=== PATIENT | female | born 1955 | race Caucasian/White ===

== ENCOUNTER 2016-06-12 14:33 | Outpatient (RCR) | payer BC ==
[~2016-06-12 14:33] MED LIST: BUPR300T PO; CHOL2000 PO; DIAZ10TA3 PO; EXEM25TA4 PO; FNT50TD TD; HYDR118S10 PO; LVT.112T PO; POLY17PO23 PO; TMSL.4C PO; TRIA1TAB2 PO; VNL75T PO
--- OUTSIDE RECORDS SUMMARY | 2016-06-12 14:36 | XMS REPORT | Continuity of Care Document ---
Author Author Interface Organization Interface Address Unknown Phone Unavailable Problems Problem Status Onset Date Classification Date Reported Comments Source Medications Medication Details Route Status Patient Instructions Ordering Provider Order Date Source Allergies, Adverse Reactions, Alerts Substance Category Reaction Severity Reaction type Status Date Reported Comments Source Immunizations Immunization Date Given Site Status Last Updated Comments Source Results Order Name Results Value Reference Range Date Interpretation Comments Source Vital Signs Vital Sign Value Date Comments Source Encounters Location Location Details Encounter Type Encounter Number Reason For Visit Attending Provider ADM Date DC Date Status Source [facility] [id number] Amb Surgery [id number] Paul Liao 10/21/2012 10/21/2012 [employer] Procedures Procedure Code Date Perfomer Comments Source
[2016-06-12 14:54] LABS: BASOPHILS % (AUTO) 0 % (0-10); EOSINOPHILS # (AUTO) 0.1 10^3/uL (0.0-0.3); EOSINOPHILS % (AUTO) 1 % (0-10); LYMPHOCYTES # (AUTO) 2.8 X 10^3 (1.0-4.0); LYMPHOCYTES % (AUTO) 30 % (12-44); MEAN CORPUSCULAR HEMOGLOBIN 31 PG (25-34); MEAN CORPUSCULAR HGB CONC 34 G/DL (32-36); MEAN CORPUSCULAR VOLUME 91 FL (80-99); MONOCYTES # (AUTO) 0.9 X 10^3 (0.0-1.0); MONOCYTES % (AUTO) 10 % (0-12); NEUTROPHILS # (AUTO) 5.5 X 10^3 (1.8-7.8); NEUTROPHILS % (AUTO) 59 % (42-75); PLATELET COUNT 387 10^3/uL (130-400); RED BLOOD COUNT 4.99 10^6/uL (4.35-5.85); RED CELL DISTRIBUTION WIDTH 13.4 % (10.0-14.5); WHITE BLOOD COUNT 9.3 10^3/uL (4.3-11.0)
[2016-06-12 15:21] LABS: ALANINE AMINOTRANSFERASE 31 U/L (0-55); ALBUMIN 4.3 G/DL (3.2-4.5); ANION GAP 12 MMOL/L (5-14); ASPARTATE AMINO TRANSFERASE 23 U/L (5-34); BILIRUBIN,TOTAL 0.9 MG/DL (0.1-1.0); BLOOD UREA NITROGEN 21 MG/DL (7-18); BUN/CREATININE RATIO 25; CALCIUM 9.9 MG/DL (8.5-10.1); CARBON DIOXIDE 27 MMOL/L (21-32); CHLORIDE 102 MMOL/L (98-107); CREATININE SERUM 0.85 MG/DL (0.60-1.30); GFR ESTIMATED > 60; GLUCOSE 108 MG/DL (70-105); POTASSIUM 3.7 MMOL/L (3.6-5.0); SODIUM 141 MMOL/L (135-145); TOTAL PROTEIN 7.2 G/DL (6.4-8.2)
[2016-06-12 15:28] LABS: PEP REPORT SEE PATH REPORT
[2016-06-12 15:41] LABS: THYROID STIMULATING HORMONE 0.13 UIU/ML (0.35-4.94)
[2016-06-13 04:45] LABS: IMMUNOGLOBULIN IGA 393 mg/dL (71-263); IMMUNOGLOBULIN IGG 739 mg/dL (672-1680); LIGHT CHAIN KAPPA SERUM QUANT 44.43 mg/L (3.30-19.40); LIGHT CHAIN LAMBDA SERUM QUANT 9.33 mg/L (5.71-26.30)
[2016-06-13 07:14] LABS: IMMUNOGLOBULIN IGM 34 mg/dL (47-209)
[2016-06-16 11:39] LABS: CLIN PATHOLOGY REPORT FOOTNOTE; SERUM PROTEIN ELEC DETAIL L-17-0000894
== END 2016-09-10 | disposition home or self-care (01) ==
LOC: ONC 14:33
PROVIDERS: ATTEND Internal Medicine Hematology & Oncology
DX: Z08 Encounter for follow-up examination after completed treatment for malignant neoplasm (principal); Z85.3 Personal history of malignant neoplasm of breast; D47.2 Monoclonal gammopathy; E55.9 Vitamin D deficiency, unspecified; G47.33 Obstructive sleep apnea (adult) (pediatric); Z90.13 Acquired absence of bilateral breasts and nipples; Z79.899 Other long term (current) drug therapy
CPT/HCPCS: 36415; 80053; 82232; 82784; 83883; 84155; 84165; 84443; 85025; 99213

== ENCOUNTER → 2016-12-11 | Outpatient (CLI) | payer BC ==
[~2016-12-11] MED LIST changes: +CHOL200025 PO; +HYDR-3820 PO; +LEVO100T7 PO; +PREG75CA PO; +TRIA1CAP4 PO; +VNL37.5T PO
--- NOTE | 2016-12-11 17:15 | Diagnostic Imaging Report ---
INDICATION: Progressive right great toe pain. FINDINGS: AP, oblique, and lateral views of the right foot are obtained. No acute fracture or malalignment is identified. There is narrowing of the first metatarsophalangeal joint with marginal spurring and subchondral sclerosis. No radiopaque foreign body is identified. IMPRESSION: Mydw-vx-sujhizkz degenerative changes in the great toe without acute abnormality seen. Dictated by: Dictated on workstation # [id number]
--- NOTE | 2016-12-11 17:22 | Diagnostic Imaging Report ---
INDICATION: Right great toe pain. FINDINGS: AP and lateral views of the great toe reveal moderate narrowing of the first metatarsophalangeal joint with prominent marginal osteophytes. There are also cehd-qh-hyfjxijx osteophytes at the first interphalangeal joint. No fracture or dislocation is seen, and there is no abnormal lytic or sclerotic focus. IMPRESSION: Osteoarthritis involving the great toe which is most pronounced at the first metatarsophalangeal joint. Dictated by: Dictated on workstation # [id number]
== END ==
LOC: RAD 15:52
PROVIDERS: ATTEND Nurse Practitioner Family
DX: M19.071 Primary osteoarthritis, right ankle and foot (principal)
CPT/HCPCS: 73630; 73660

== ENCOUNTER 2017-04-09 11:56 | Outpatient (CLI) | payer BC ==
[~2017-04-09] VITALS: Ht 154.9 cm; Wt 87.5 kg
[~2017-04-09 11:56] MED LIST changes: -CHOL200025 PO; -HYDR-3820 PO; -LEVO100T7 PO; -PREG75CA PO; -TRIA1CAP4 PO; -VNL37.5T PO
[2017-04-09] MEDS ORDERED: DIAZ10TA3 PO (12:12)
[2017-04-09] MEDS ORDERED: VNL37.5T PO (12:12)
[2017-04-09] MEDS ORDERED: PREG75CA PO (12:12)
[2017-04-09] MEDS ORDERED: TRIA1CAP4 PO (12:12)
[2017-04-09] MEDS ORDERED: HYDR-3820 PO (12:12)
[2017-04-09] MEDS ORDERED: LEVO100T7 PO (12:12)
[2017-04-09] MEDS ORDERED: CHOL200025 PO (12:12)
== END 2017-04-09 12:17 | disposition home or self-care (01) ==
LOC: PREOP 11:56
PROVIDERS: ATTEND Podiatrist Foot & Ankle Surgery
DX: Z01.818 Encounter for other preprocedural examination (principal); M20.21 Hallux rigidus, right foot
CPT/HCPCS: 87081

== ENCOUNTER 2017-05-04 06:00 | Day surgery (SDC) | payer BC ==
[~2017-05-04] VITALS: Ht 154.9 cm; Wt 87.5 kg
[~2017-05-04 06:00] MED LIST changes: +CHOL200025 PO; +HYDR-3820 PO; +LEVO100T7 PO; +PREG75CA PO; +TRIA1CAP4 PO; +VNL37.5T PO
[2017-05-04 06:15] VITALS: BP 147/97
[2017-05-04] MEDS: LACTATED RINGERS 1,000 ML IV PRN ×2 (06:45→08:15)
[2017-05-04] MEDS ORDERED: ceFAZolin 1 GM/NS 50 ML IVPB IV ONE ×2 (06:45)
[2017-05-04] MEDS ORDERED: CATHETER FLUSH 10 ML SYR IV PRN (06:45)
[2017-05-04] MEDS ORDERED: BUPIVACAINE 0.5% 30 ML (SENSORCAINE) VIAL ONE (06:57)
[2017-05-04] MEDS ORDERED: fentaNYL INJECTION 100 MCG/2 ML AMP ONE (07:06)
[2017-05-04] MEDS ORDERED: LACTATED RINGERS 0 ML IV ONE (07:06)
[2017-05-04] MEDS ORDERED: proPOfol 200 MG/20 ML (DIPRIVAN) VIAL IV ONE (07:06)
[2017-05-04] MEDS ORDERED: LIDOCAINE PF 2% 5 ML (XYLOCAINE) VIAL ONE (07:06)
[2017-05-04] MEDS ORDERED: LIDOCAINE JELLY 2% (XYLOCAINE) 5 ML TUBE ONE (07:06)
[2017-05-04] MEDS ORDERED: ROCURONIUM 50 MG/5 ML (ZEMURON) VIAL IV ONE (07:06)
[2017-05-04] MEDS ORDERED: ONDANSETRON 4 MG/2 ML (SDV) Z0FRAN ONE (07:06)
[2017-05-04] MEDS ORDERED: MIDAZOLAM 2 MG/2 ML (VERSED) VIAL ONE (07:07)
--- NOTE | 2017-05-04 07:37 | Progress Note-Pre Operative ---
Pre-Operative Progress Note H&P Reviewed The H&P was reviewed, patient examined and no changes noted. Date Seen by Provider: May 04, 2017 Time Seen by Provider: 07:37 Date H&P Reviewed: May 04, 2017 Time H&P Reviewed: 07:37 Pre-Operative Diagnosis: Hallux Rigidus Right JONY ROBERTS DPM May 04, 2017 7:37 am
[2017-05-04] MEDS ORDERED: SEVOFLURANE (ULTANE) 15 ML INHAL SOLN ONE (08:45)
[2017-05-04] MEDS ORDERED: DEXAMETHASONE 10 MG/ML (DECADRON) 1 ML VIAL ONE (08:48)
[2017-05-04] MEDS ORDERED: DEXAMETHASONE 10 MG/ML (DECADRON) 1 ML VIAL IM ONE (09:00)
--- NOTE | 2017-05-04 09:10 | Progress Note-Post Operative ---
Post-Operative Progess Note Surgeon (s)/Physician Practice Consultant (s) Surgeon JONY ROBERTS DPM Physician Practice Consultant: NONE Pre-Operative Diagnosis Hallux Rigidus Right Post-Operative Diagnosis Same plus hallux valgus right Procedure & Operative Findings Date of Procedure 05/04/17 Procedure Performed/Findings Wu Bunionectomy, right Anesthesia Type General Estimated Blood Loss Estimated blood loss (mL): Minimal Specimens/Packing Specimens Removed None JONY ROBERTS DPM May 04, 2017 9:10 am
[2017-05-04] MEDS ORDERED: LACTATED RINGERS 1,000 ML IV SCH (09:11)
[2017-05-04] MEDS ORDERED: MEPERIDINE (DEMEROL) INJ 50 MG/ML IVP PRN (09:15)
[2017-05-04] MEDS ORDERED: HYDROcodone/APAP 5 MG/325 MG (LORTAB) TAB PO PRN (09:15)
[2017-05-04] MEDS ORDERED: ONDANSETRON 4 MG/2 ML (SDV) Z0FRAN IVP PRN ×2 (09:15)
[2017-05-04] MEDS ORDERED: HYDR-3812 PO (09:15)
[2017-05-04] MEDS ORDERED: CEPH500C PO (09:15)
[2017-05-04] MEDS: morphine INJ 10 MG/ML 1ML (SYR OR VIAL) IVP PRN ×2 (09:34→09:44)
[2017-05-04 10:10] VITALS: BP 152/90
--- NOTE | 2017-05-04 10:12 | Diagnostic Imaging Report ---
2 views of the right foot. COMPARISON: 12/11/2016. INDICATION: Removal of right bunion. FINDINGS: Postsurgical changes are seen with osteotomy and internal fixation in the proximal phalanx of the great toe. Alignment is satisfactory. No subluxation or dislocation. IMPRESSION: Osteotomy and internal fixation along the proximal phalanx of the great toe is seen. Dictated by: Dictated on workstation # [id number]
[2017-05-04 10:40] VITALS: BP 152/90
[2017-05-04 11:10] VITALS: BP 153/97
--- NOTE | 2017-05-04 11:23 | Physical Therapy Ortho Eval ---
PT Orthopedic Evaluation Type of Surgery bunion right foot Prior Level of Function Current Living Status: Spouse Locomotion (Upon Admit): Independent Established Durable Medical Eq: None Subjective Subjective Patient is agreeable to participate with PT. Entry Into Home: Stairs Without Railing Steps Into Home: 2 Objective Objective Education with demonstration on PWB right foot with FWW Motor Control Motor Control: Motor Control WNL ROM ROM: WFL, except focal deficit Strength Strength: WFL Transfer Transfers (B, C, W/C) (FIM): 7 Gait Gait Assistive Device: FWW Right Lower Extremity: Right Weight Bearing Status RLE: Partial Weight Bearing Left Lower Extremity: Left Weight Bearing Status LLE: Full Weight Bearing Other Weight Bearing Inst.: Heel contact only right foot with surgical shoe in place for protection Gait (FIM): 2 Distance (FIM): 3=401-62 ft Distance: 65' Gait Level of Assist: 6 Treatment Rendered Treatment: Gait Train, Step Train (with spouse assist on left) Assessment/Goals Goal Time Frame: 1 Visit Safe Ambulation: Yes Plan Treatment Plan: Discharge Treatment Duration: 1 Visits Per Week: 1 PT/Family Agrees to Plan: Yes Time Time In: 1053 Time Out: 1111 Total Billed Treatment Time: 18 Billed Treatment Time 1 visit EVModC 18 min No BUDDY MOSHER PT May 04, 2017 11:23
--- NOTE | 2017-05-04 12:12 | OPERATIVE REPORT ---
DATE OF SERVICE: 05/04/2017 SURGEON: Katiana Roberts DPM PREOPERATIVE DIAGNOSIS: Hallux rigidus, right. POSTOPERATIVE DIAGNOSIS: Hallux rigidus, right with the addition of hallux abductovalgus, right. PROCEDURE: Modified Wu bunionectomy with cheilectomy, right. WOUND CLASS: Clean. ANESTHESIA: General. HEMOSTASIS: Pneumatic thigh tourniquet at 300 mmHg. INDICATIONS: This 61-year-old female presents complaining of painful right great toe joint. Conservative therapy has met with unsatisfactory results and the patient is agreeable to surgical intervention after risks and complications were discussed at length. No guarantees were extended to the patient and she is willing to proceed. The patient was brought back to the operating table placed in a secure supine position. A proper timeout was performed. General anesthetic was induced. A pneumatic thigh tourniquet was placed on the right lower extremity over several layers of padding. The right foot was then prepped and draped in normal sterile manner. The right foot was then elevated and allowed to exsanguinate after which the tourniquet was inflated to 300 mmHg. Attention was then directed to the dorsal aspect of the first metatarsophalangeal joint where a 6 cm longitudinal linear incision was created. The incision was deepened in the same plane with great care to identify and retract all vital neurovascular structures. All necessary blood vessels were cauterized as encountered. The incision was deepened down to capsule where a longitudinal capsulotomy was performed. This exposed a hypertrophic dorsal eminence to the first metatarsal head as well as the base of the proximal phalanx. Power sagittal saw was utilized to remove the dorsal eminence to the first metatarsal head and a rongeur was utilized to reduce the dorsal, medial and lateral prominence to the base of the proximal phalanx. These areas were further contoured and smoothed with a power bur as well as a power rasp. With inspection to the first metatarsal head, there is approximately 1/4 to 1/3 of the articular cartilage that had full thickness degeneration to the dorsal lateral aspect of the head of the first metatarsal. It was then decided that a fenestration and a joint alignment would be more appropriate than joint replacement. Utilizing a 1 mm drill, the area devoid of articular cartilage was fenestrated and cleansed. There is significant amount of lateral deviation to the hallux promoting more pressure to the lateral side of the joint. It was then decided that an Wu type procedure would be appropriate to realign the hallux and reduce pressure to the lateral aspect of the joint. Attention was then directed to the diaphysis of the proximal phalanx where subperiosteal dissection was carried out. A wedge of bone was resected utilizing a power sagittal saw with the base medial and the lateral cortices held intact. Once the wedge of bone was removed, the gap was closed reducing the angulation of the right hallux. Two commercial helicopter pilot holes were created at the dorsal medial aspect of the osteotomy. A 28-gauge monofilament wire was then passed through the commercial helicopter pilot hole securing the osteotomy in a closed position. This was done after copious amounts of normal saline was used for flushing the wound. Once the monofilament wire was secured, excellent bony apposition and fixation was appreciated at this time. The wound was flushed with copious amounts of normal saline once again and closure was performed in layers. Deep closure was performed with 3-0 Vicryl, superficial 4-0 Vicryl, skin was closed with 4-0 Prolene in a horizontal mattress type stitch. Postoperative injection consisted of 15 mL of 0.5% Marcaine injected in a Arauz block. A 10 mg dexamethasone was also utilized to infuse into the first metatarsophalangeal joint. Postoperative dressing consisted of Betadine soaked Adaptic, sterile 4 x 4, sterile Kerlix all secured with Coban wrap. The patient tolerated the anesthesia and procedure well and was transported from the operating room to the recovery area with vital signs stable and vascular status intact to all digits of the right foot. She was given a prescription for Vicodin and Keflex postoperatively. She is to follow up in my office in 10 days' Period of time or sooner if necessary. Job ID: [id number] DocumentID: [id number] Dictated Date: 05/04/2017 09:22:10 Title Searcher Date: 05/04/2017 12:12:28 Dictated By: KATIANA ROBERTS DPM
== END 2017-05-04 11:30 | disposition home or self-care (01) ==
LOC: SDC 06:00
PROVIDERS: ATTEND Podiatrist Foot & Ankle Surgery
DX: M20.21 Hallux rigidus, right foot (principal); M20.11 Hallux valgus (acquired), right foot; E11.9 Type 2 diabetes mellitus without complications; E03.9 Hypothyroidism, unspecified; Z85.3 Personal history of malignant neoplasm of breast; I10 Essential (primary) hypertension; G47.33 Obstructive sleep apnea (adult) (pediatric); G62.9 Polyneuropathy, unspecified; F32.9 Major depressive disorder, single episode, unspecified; Z87.442 Personal history of urinary calculi; Z92.3 Personal history of irradiation; Z92.21 Personal history of antineoplastic chemotherapy; Z79.899 Other long term (current) drug therapy; Z88.8 Allergy status to other drugs, medicaments and biological substances
CPT/HCPCS: 73620

== ENCOUNTER 2017-06-11 14:35 | Outpatient (RCR) | payer BC ==
[~2017-06-11 14:35] MED LIST changes: +ACHD5005 PO; +CEPH500C PO
[2017-06-11 15:05] LABS: BASOPHILS # (AUTO) 0.1 10^3/uL (0.0-0.1); BASOPHILS % (AUTO) 1 % (0-10); EOSINOPHILS # (AUTO) 0.1 10^3/uL (0.0-0.3); EOSINOPHILS % (AUTO) 1 % (0-10); HEMATOCRIT 44 % (35-52); LYMPHOCYTES # (AUTO) 2.9 X 10^3 (1.0-4.0); LYMPHOCYTES % (AUTO) 35 % (12-44); MEAN CORPUSCULAR HEMOGLOBIN 30 PG (25-34); MEAN CORPUSCULAR HGB CONC 34 G/DL (32-36); MEAN CORPUSCULAR VOLUME 89 FL (80-99); MEAN PLATELET VOLUME 10.1 FL (7.4-10.4); MONOCYTES # (AUTO) 0.7 X 10^3 (0.0-1.0); MONOCYTES % (AUTO) 8 % (0-12); NEUTROPHILS # (AUTO) 4.6 X 10^3 (1.8-7.8); NEUTROPHILS % (AUTO) 55 % (42-75); PLATELET COUNT 336 10^3/uL (130-400); RED BLOOD COUNT 4.94 10^6/uL (4.35-5.85); RED CELL DISTRIBUTION WIDTH 13.6 % (10.0-14.5); WHITE BLOOD COUNT 8.3 10^3/uL (4.3-11.0)
[2017-06-11 15:24] LABS: ALANINE AMINOTRANSFERASE 25 U/L (0-55); ALBUMIN 3.9 GM/DL (3.2-4.5); ALKALINE PHOSPHATASE 74 U/L (40-136); BILIRUBIN,TOTAL 0.8 MG/DL (0.1-1.0); BUN/CREATININE RATIO 14; CALCIUM 9.4 MG/DL (8.5-10.1); CARBON DIOXIDE 21 MMOL/L (21-32); CHLORIDE 102 MMOL/L (98-107); CREATININE SERUM 0.77 MG/DL (0.60-1.30); GFR ESTIMATED > 60; GLUCOSE 127 MG/DL (70-105); POTASSIUM 3.2 MMOL/L (3.6-5.0); SODIUM 138 MMOL/L (135-145); TOTAL PROTEIN 6.9 GM/DL (6.4-8.2)
== END 2017-09-09 | disposition home or self-care (01) ==
LOC: ONC 14:35
PROVIDERS: ATTEND Internal Medicine Hematology & Oncology
DX: D47.2 Monoclonal gammopathy (principal); Z85.3 Personal history of malignant neoplasm of breast; E55.9 Vitamin D deficiency, unspecified; G47.33 Obstructive sleep apnea (adult) (pediatric); Z08 Encounter for follow-up examination after completed treatment for malignant neoplasm; Z90.13 Acquired absence of bilateral breasts and nipples; Z79.899 Other long term (current) drug therapy
CPT/HCPCS: 36415; 80053; 82232; 82784; 83883; 84155; 84165; 85025; 99213

== ENCOUNTER 2018-09-02 12:53 | Outpatient (RCR) | payer BC ==
[2018-09-02 13:18] LABS: BASOPHILS % (AUTO) 1 % (0-10); EOSINOPHILS # (AUTO) 0.1 10^3/uL (0.0-0.3); EOSINOPHILS % (AUTO) 1 % (0-10); HEMATOCRIT 44 % (35-52); HEMOGLOBIN 14.7 G/DL (11.5-16.0); LYMPHOCYTES # (AUTO) 2.5 X 10^3 (1.0-4.0); LYMPHOCYTES % (AUTO) 29 % (12-44); MEAN CORPUSCULAR HEMOGLOBIN 31 PG (25-34); MEAN CORPUSCULAR HGB CONC 33 G/DL (32-36); MEAN CORPUSCULAR VOLUME 91 FL (80-99); MEAN PLATELET VOLUME 10.4 FL (7.4-10.4); MONOCYTES # (AUTO) 0.7 X 10^3 (0.0-1.0); MONOCYTES % (AUTO) 8 % (0-12); NEUTROPHILS # (AUTO) 5.3 X 10^3 (1.8-7.8); NEUTROPHILS % (AUTO) 62 % (42-75); PLATELET COUNT 320 10^3/uL (130-400); RED CELL DISTRIBUTION WIDTH 14.6 % (10.0-14.5); WHITE BLOOD COUNT 8.6 10^3/uL (4.3-11.0)
[2018-09-02 13:35] LABS: ALANINE AMINOTRANSFERASE 33 U/L (0-55); ALBUMIN 4.3 GM/DL (3.2-4.5); ALKALINE PHOSPHATASE 59 U/L (40-136); BILIRUBIN,TOTAL 0.8 MG/DL (0.1-1.0); BUN/CREATININE RATIO 21; CALCIUM 9.9 MG/DL (8.5-10.1); CARBON DIOXIDE 29 MMOL/L (21-32); CHLORIDE 103 MMOL/L (98-107); CREATININE SERUM 0.85 MG/DL (0.60-1.30); GFR ESTIMATED > 60; GLUCOSE 120 MG/DL (70-105); POTASSIUM 4.6 MMOL/L (3.6-5.0); SODIUM 142 MMOL/L (135-145)
== END 2018-12-01 | disposition home or self-care (01) ==
LOC: ONC 12:53
PROVIDERS: ATTEND Internal Medicine Hematology & Oncology
DX: D47.2 Monoclonal gammopathy (principal); Z85.3 Personal history of malignant neoplasm of breast; E55.9 Vitamin D deficiency, unspecified; G47.33 Obstructive sleep apnea (adult) (pediatric); Z08 Encounter for follow-up examination after completed treatment for malignant neoplasm; Z90.13 Acquired absence of bilateral breasts and nipples; Z79.899 Other long term (current) drug therapy
CPT/HCPCS: 36415; 80053; 82232; 82784; 83883; 84155; 84165; 85025; 99213

== ENCOUNTER → 2019-04-28 | Outpatient (CLI) | payer BC ==
[2019-04-28 18:13] LABS: BASOPHILS # (AUTO) 0.1 10^3/uL (0.0-0.1); BASOPHILS % (AUTO) 1 % (0-10); EOSINOPHILS # (AUTO) 0.1 10^3/uL (0.0-0.3); EOSINOPHILS % (AUTO) 1 % (0-10); HEMATOCRIT 44 % (35-52); HEMOGLOBIN 14.7 G/DL (11.5-16.0); LYMPHOCYTES # (AUTO) 3.4 X 10^3 (1.0-4.0); LYMPHOCYTES % (AUTO) 28 % (12-44); MEAN CORPUSCULAR HEMOGLOBIN 30 PG (25-34); MEAN CORPUSCULAR HGB CONC 33 G/DL (32-36); MEAN CORPUSCULAR VOLUME 91 FL (80-99); MONOCYTES # (AUTO) 1.1 X 10^3 (0.0-1.0); MONOCYTES % (AUTO) 9 % (0-12); NEUTROPHILS # (AUTO) 7.7 X 10^3 (1.8-7.8); NEUTROPHILS % (AUTO) 63 % (42-75); PLATELET COUNT 386 10^3/uL (130-400); RED CELL DISTRIBUTION WIDTH 13.8 % (10.0-14.5); WHITE BLOOD COUNT 12.4 10^3/uL (4.3-11.0)
--- NOTE | 2019-04-28 18:24 | Diagnostic Imaging Report ---
INDICATION: Shortness of breath PA and lateral chest There is elevation of the right hemidiaphragm. Heart size and pulmonary vascularity are normal. Lungs are clear. There are no effusions or pneumothoraces. IMPRESSION: No acute abnormalities in the chest Dictated by: Dictated on workstation # [id number]
[2019-04-28 18:36] LABS: ALANINE AMINOTRANSFERASE 21 U/L (0-55); ALBUMIN 4.2 GM/DL (3.2-4.5); ALKALINE PHOSPHATASE 62 U/L (40-136); BILIRUBIN,TOTAL 0.6 MG/DL (0.1-1.0); BUN/CREATININE RATIO 20; CALCIUM 9.7 MG/DL (8.5-10.1); CARBON DIOXIDE 28 MMOL/L (21-32); CHLORIDE 99 MMOL/L (98-107); GFR ESTIMATED > 60; GLUCOSE 102 MG/DL (70-105); POTASSIUM 3.8 MMOL/L (3.6-5.0); SODIUM 140 MMOL/L (135-145); TOTAL PROTEIN 6.9 GM/DL (6.4-8.2)
[2019-04-28 18:43] LABS: ERYTHROCYTE SEDIMENTATION RATE 7 MM/HR (0-30)
== END ==
LOC: RAD 17:41
PROVIDERS: ATTEND Nurse Practitioner Family
DX: E03.9 Hypothyroidism, unspecified (principal); E55.9 Vitamin D deficiency, unspecified; R00.2 Palpitations; R06.00 Dyspnea, unspecified; R00.0 Tachycardia, unspecified; R06.02 Shortness of breath
CPT/HCPCS: 36415; 71046; 80053; 82306; 84439; 84443; 85025; 85379; 85652; 86141

== ENCOUNTER → 2019-04-29 | Outpatient (CLI) | payer BC | LOC: CARD 12:01 | PROVIDERS: ATTEND Nurse Practitioner Family | DX: E55.9 Vitamin D deficiency, unspecified (principal); E03.9 Hypothyroidism, unspecified; D47.2 Monoclonal gammopathy; R06.00 Dyspnea, unspecified; R00.0 Tachycardia, unspecified; R00.2 Palpitations | CPT/HCPCS: 93005 ==

== ENCOUNTER → 2019-05-12 | Outpatient (CLI) | payer BC ==
--- NOTE | 2019-05-12 13:48 | Diagnostic Imaging Report ---
INDICATION: Pain in the lateral portion of the right breast as well as fullness in the superior aspects of both breasts. Correlation is made with left mammogram performed from an outside institution on 05/31/2013. There are bilateral breast implants. There are benign calcifications in both breasts. Lobulated contours along the superior margins of the implants bilaterally is noted. The entire implant of the right breast could not be imaged. No spiculated mass or malignant appearing microcalcifications are seen. There are surgical clips in the left axilla. IMPRESSION: BI-RADS 0 No concerning mammographic findings are identified to suggest malignancy. Even so, directed sonographic interrogation of the areas of concern in the lateral right breast as well as the superior bilateral breasts is recommended and will be performed today. ACR BI-RADS Category 0: Incomplete. (Needs additional imaging evaluation). Result letter will be mailed to the patient. Note: At least 10% of breast cancer is not imaged by mammography. Dictated by: Dictated on workstation # [id number]
--- NOTE | 2019-05-12 20:09 | Diagnostic Imaging Report ---
INDICATION: Fullness in the superior aspects of both breasts as well as pain in the lateral aspect of the right breast. Correlation is made with diagnostic mammogram earlier same day. FINDINGS: Sonographic interrogation of bilateral breasts was performed. There are numerous calcifications in the right breast at the 3 and 8 o'clock locations. No noncalcified masses or cysts are seen on the right. No concerning finding on the right is identified. On the left, there are subcentimeter cysts at the 9, 10, and 12 o'clock locations. A calcified lesion at the 9 o'clock location is noted. There is a hypoechoic circumscribed nodule at the 7 o'clock location 12 cm from the nipple measuring approximately 10 mm x 7 mm. No internal vascularity is seen. No other abnormality is detected. IMPRESSION: 1. No concerning abnormality in the right breast is identified. 2. Hypoechoic circumscribed nodule at the 7 o'clock location in the left breast 12 cm from the nipple without internal vascularity. A follow-up left breast ultrasound is recommended in six months to confirm stability. Consideration could also be given to performance of an ultrasound-guided core biopsy of this lesion. ACR BI-RADS Category 3: Probably benign findings. Dictated by: Dictated on workstation # [id number]
== END ==
LOC: RAD 12:26
PROVIDERS: ATTEND Nurse Practitioner Family
DX: N60.01 Solitary cyst of right breast (principal); N60.02 Solitary cyst of left breast
CPT/HCPCS: 77066

== ENCOUNTER → 2019-09-08 | Outpatient (CLI) | payer BC ==
[~2019-09-08] MED LIST changes: +ACHYD1T PO; -HYDR-3820 PO
[2019-09-08 14:51] LABS: BASOPHILS % (AUTO) 0 % (0-10); EOSINOPHILS # (AUTO) 0.1 10^3/uL (0.0-0.3); EOSINOPHILS % (AUTO) 1 % (0-10); HEMATOCRIT 46 % (35-52); HEMOGLOBIN 15.3 G/DL (11.5-16.0); LYMPHOCYTES # (AUTO) 2.2 X 10^3 (1.0-4.0); LYMPHOCYTES % (AUTO) 24 % (12-44); MEAN CORPUSCULAR HEMOGLOBIN 30 PG (25-34); MEAN CORPUSCULAR HGB CONC 33 G/DL (32-36); MEAN CORPUSCULAR VOLUME 90 FL (80-99); MEAN PLATELET VOLUME 10.3 FL (7.4-10.4); MONOCYTES # (AUTO) 0.7 X 10^3 (0.0-1.0); MONOCYTES % (AUTO) 8 % (0-12); NEUTROPHILS # (AUTO) 6.3 X 10^3 (1.8-7.8); NEUTROPHILS % (AUTO) 67 % (42-75); PLATELET COUNT 369 10^3/uL (130-400); RED CELL DISTRIBUTION WIDTH 14.1 % (10.0-14.5); WHITE BLOOD COUNT 9.4 10^3/uL (4.3-11.0)
[2019-09-08 15:16] LABS: ALANINE AMINOTRANSFERASE 21 U/L (0-55); ALBUMIN 3.9 GM/DL (3.2-4.5); ALKALINE PHOSPHATASE 67 U/L (40-136); BILIRUBIN,TOTAL 0.6 MG/DL (0.1-1.0); BUN/CREATININE RATIO 14; CALCIUM 9.4 MG/DL (8.5-10.1); CARBON DIOXIDE 30 MMOL/L (21-32); CHLORIDE 102 MMOL/L (98-107); CREATININE SERUM 0.83 MG/DL (0.60-1.30); GFR ESTIMATED > 60; GLUCOSE 112 MG/DL (70-105); POTASSIUM 3.3 MMOL/L (3.6-5.0); SODIUM 141 MMOL/L (135-145)
== END ==
LOC: EDSTATUS 12-02 11:19 → ONC 14:34
PROVIDERS: ATTEND Internal Medicine Hematology & Oncology
DX: C50.512 Malignant neoplasm of lower-outer quadrant of left female breast (principal); D47.2 Monoclonal gammopathy; N18.3 Chronic kidney disease, stage 3 (moderate); E03.9 Hypothyroidism, unspecified; E55.9 Vitamin D deficiency, unspecified; G47.33 Obstructive sleep apnea (adult) (pediatric); Z79.899 Other long term (current) drug therapy; Z17.0 Estrogen receptor positive status [ER+]
CPT/HCPCS: 80053; 85025; 99213

== ENCOUNTER → 2019-11-23 | Outpatient (CLI) | payer BC | LOC: LABNPT 08:04 | PROVIDERS: ATTEND Family Medicine | DX: J06.9 Acute upper respiratory infection, unspecified (principal); R68.83 Chills (without fever); R19.7 Diarrhea, unspecified; Z20.828 Contact with and (suspected) exposure to other viral communicable diseases | CPT/HCPCS: 87635 ==

== ENCOUNTER → 2020-07-12 | Outpatient (CLI) | payer BC ==
--- NOTE | 2020-07-12 14:35 | Diagnostic Imaging Report ---
Indication: Palpable lump left breast. Correlation is made with prior exam 05/12/2019. Unilateral left 2-D and 3-D diagnostic mammography was performed. BB markers were placed at the area palpable abnormality lateral left breast. Postsurgical changes left breast are noted. Left breast implant appears stable. The surgical clips in the upper left breast. There are numerous benign calcifications in the left breast. No new mass or malignant appearing microcalcifications are seen. Left axilla is unremarkable. IMPRESSION: BI-RADS 0 Stable left mammogram with no mammographic features suspicious for malignancy identified. Even so, directed sonographic interrogation of the area of palpable abnormality in the left breast is recommended and will be performed today. ACR BI-RADS Category 0: Incomplete. (Needs additional imaging evaluation). Result letter will be mailed to the patient. Note: At least 10% of breast cancer is not imaged by mammography. Dictated by: Dictated on workstation # [id number]
--- NOTE | 2020-07-12 16:52 | Diagnostic Imaging Report ---
INDICATION: Left breast lump at the 12:00 and 4:00 locations. Patient has history of breast carcinoma and mastectomy with breast reconstruction and implant placement. FINDINGS: Sonographic interrogation of the areas of palpable abnormality were obtained corresponding to the 12:00 and 4:00 locations. 12:00 location demonstrates a cyst with calcified wall approximately 6-7 mm in size. This may represent a partial calcified oil cyst. There is a 9 mm cyst at the 9:00 location and a 6 cm cyst at the 10:00 location. Approximately 4 mm cyst is identified at the 11:00 location as well as a 3 mm cyst. 7:00 location demonstrates a 4-5 mm cyst. At the area of palpable abnormality at the 4:00 location no underlying abnormality is seen. There is some wavy contour to the patient's implant at this location. No concerning palpable abnormality is detected. IMPRESSION: Multiple left breast cysts, some of which are calcified and may represent oil cysts. No concerning sonographic abnormality is identified. ACR BI-RADS Category 2: Benign findings. Result letter will be mailed to the patient. Note: At least 10% of breast cancer is not imaged by mammography. Dictated by: Dictated on workstation # [id number]
== END ==
LOC: RAD 13:25
PROVIDERS: ATTEND Family Medicine
DX: N60.12 Diffuse cystic mastopathy of left breast (principal)
CPT/HCPCS: 76642; 77065; G0279

== ENCOUNTER → 2020-09-27 | Outpatient (CLI) | payer BC ==
[~2020-09-27] MED LIST changes: +CATHETER FLUSH 10 ML SYR IV PRN; +HOLD METFORMIN - RECEIVED CONTRAST 20 ML VIAL IV SCH; +IOHEXOL 350 MG/ML 100 ML (OMNIPAQUE 350) VIAL IV ONE; +NS 100 ML (IVPB) BAG IV ONE
--- NOTE | 2020-09-27 19:38 | Diagnostic Imaging Report ---
PROCEDURE: CT head with and without contrast. TECHNIQUE: Multiple contiguous axial images were obtained through the brain before and after the administration of intravenous contrast. Auto Exposure Controls were utilized during the CT exam to meet ALARA standards for radiation dose reduction. DATE: September 27, 2020. COMPARISON: CT head and cervical spine March 09, 2013. INDICATION: 65-year-old female, mastoiditis. FINDINGS: The ventricles and cerebral spinal fluid spaces are of normal size and configuration for the patient's age. There is no mass effect or midline shift. There is no acute intracranial hemorrhage. There is no abnormal extra-axial fluid collection. There is no abnormal intracranial enhancement. The visualized portions of the paranasal sinuses, mastoid air cells and middle ears are well aerated. There is no destruction of mastoid air cell septa. There is no identified soft tissue mass or fluid collection in the region of the external auditory canals or otherwise identified in the included field of view. There is a small osseous protuberance on the left side of the skull on axial image 43 which is very subtle although present dating back to at least December 19, 2011. This is very likely benign. There is no identified aggressive bone lesion. IMPRESSION: 1. No identified acute intracranial abnormality. 2. Normal aerated mastoid air cells and no evidence of coalescent mastoiditis. 3. Very likely benign osseous protuberance from the left-sided the skull which is above the level of the left ear measuring 9 x 2 mm in size. This is more subtle in appearance although previously present on December 19, 2011. Dictated by: Dictated on workstation # [id number]
== END ==
LOC: RAD 14:45
PROVIDERS: ATTEND Nurse Practitioner Family
DX: H70.12 Chronic mastoiditis, left ear (principal)
CPT/HCPCS: 70470

== ENCOUNTER 2020-11-02 05:41 | Outpatient (CLI) | payer BC ==
[~2020-11-02] VITALS: Ht 154.9 cm; Wt 84.1 kg
[~2020-11-02 05:41] MED LIST changes: -CATHETER FLUSH 10 ML SYR IV PRN; -HOLD METFORMIN - RECEIVED CONTRAST 20 ML VIAL IV SCH; -IOHEXOL 350 MG/ML 100 ML (OMNIPAQUE 350) VIAL IV ONE; -NS 100 ML (IVPB) BAG IV ONE
[2020-11-02] MEDS ORDERED: LEVO112T55 PO (09:35)
[2020-11-02] MEDS ORDERED: BUPR-42 PO (09:35)
== END 2020-11-02 09:39 | disposition home or self-care (01) ==
LOC: PREOP 05:41
PROVIDERS: ATTEND Specialist
DX: Z01.818 Encounter for other preprocedural examination (principal)

== ENCOUNTER 2020-11-09 06:06 | Day surgery (SDC) | payer BC ==
[~2020-11-09] VITALS: Ht 154 cm; Wt 84.1 kg
[~2020-11-09 06:06] MED LIST changes: +BUPR-42 PO; +LEVO112T55 PO
[2020-11-09 06:29] VITALS: BP 127/78
[2020-11-09] MEDS ORDERED: LIDOCAINE PF 1% 2 ML VIAL IR PRN (06:30)
[2020-11-09] MEDS ORDERED: TIMOLOL MALEATE 0.5% 5 ML (TIMOPTIC) BTL OU PRN (06:30)
[2020-11-09] MEDS ORDERED: MOXIFLOXACIN OPHTH SOLN 5 MG/ML 0.3 ML SYRINGE OP ONE (06:30)
[2020-11-09] MEDS ORDERED: POVIDONE (BETADINE) OPHTH SOLN 5% 30 ML OP ONE (06:30)
[2020-11-09] MEDS ORDERED: MIDAZOLAM 2 MG/2 ML (VERSED) VIAL ONE (06:34)
[2020-11-09] MEDS: TETRACAINE 0.5% OPHTH SOLN 4 ML BTL (SINGLE DOSE ONLY) OU PRN ×4 (07:00→07:16)
[2020-11-09] MEDS: TROPICAMIDE 1% OPH SOLN (MYDRIACYL) 15 ML BTL OP SCH ×3 (07:06→07:16)
[2020-11-09] MEDS: PHENYLEPHRINE 10% OPHTH (NEO-SYN) 5 ML BTL OU SCH ×3 (07:06→07:16)
--- NOTE | 2020-11-09 07:16 | Ophthalmologist Pre-Op Note ---
Pre-Operative Progress Note H&P Reviewed The H&P was reviewed, patient examined and no changes noted. Date H&P Reviewed: Nov 09, 2020 Time H&P Reviewed: 07:16 Pre-Op Dx Cataract, Left Eye GUEVARA ARCHER MD Nov 09, 2020 07:16
[2020-11-09] MEDS ORDERED: acetaZOLAMIDE ER 500 MG CAP (DIAMOX SEQUELS) PO ONE (08:00)
--- NOTE | 2020-11-09 08:14 | Ophthalmology Operative Report ---
Cataract removal/placement IOL PREOPERATIVE DIAGNOSIS: Cataract Left Eye POSTOPERATIVE DIAGNOSIS: Cataract Left Eye PROCEDURE: Cataract removal and placement of posterior chamber implant, left eye SURGEON: Cam Archer ANESTHESIA: Topical with sedation COMPLICATIONS: None ESTIMATED BLOOD LOSS: Minimal DESCRIPTION OF PROCEDURE: After proper informed consent was obtained, the patient, a 65 female, was taken to the Operating Room and the left eye was anesthetized with tetracaine. The left eye was then prepped and draped in the usual manner. A wire lid speculum was placed. A paracentesis was made at the left hand position. Preservative free lidocaine was injected into the anterior chamber followed by viscoelastic. A clear corneal incision was made in the temporal position. A capsulorrhexis was preformed and the central nuclear and cortical material were removed. The posterior capsule was polished and an [place] 21.5 AU00T0 was placed into the capsular bag. The residual viscoelastic was aspirated and balanced saline solution was injected into the anterior chamber. Moxifloxacin was injected into the anterior chamber. The wound was checked and found to be water tight. The patient tolerated the procedure well without complications. CAM ARCHER MD Nov 09, 2020 08:14
[2020-11-09 08:18] VITALS: BP 119/76
--- NOTE | 2020-11-09 08:24 | Anesthesia-General Post-Op ---
MAC Patient Condition Mental Status/LOC: Same as Preop Cardiovascular: Satisfactory Nausea/Vomiting: Absent Respiratory: Satisfactory Pain: Controlled Complications: Absent Post Op Complications Complications None Follow Up Care/Instructions Patient Instructions None needed. Anesthesiology Discharge Order Discharge Order Patient is doing well, no complaints, stable vital signs, no apparent adverse anesthesia problems. LONNY GAMBOA DO Nov 09, 2020 08:24
== END 2020-11-09 08:21 ==
LOC: SDC 06:06
PROVIDERS: ATTEND Specialist
DX: H25.12 Age-related nuclear cataract, left eye (principal); I10 Essential (primary) hypertension; F32.9 Major depressive disorder, single episode, unspecified; M19.90 Unspecified osteoarthritis, unspecified site; Z79.899 Other long term (current) drug therapy
CPT/HCPCS: 66984; V2632

== ENCOUNTER → 2020-11-20 | Outpatient (CLI) | payer BC ==
[2020-11-20 14:32] LABS: BASOPHILS # (AUTO) 0.1 10^3/uL (0.0-0.1); BASOPHILS % (AUTO) 1 % (0-10); EOSINOPHILS # (AUTO) 0.2 10^3/uL (0.0-0.3); EOSINOPHILS % (AUTO) 2 % (0-10); HEMATOCRIT 43 % (35-52); LYMPHOCYTES # (AUTO) 1.7 X 10^3 (1.0-4.0); LYMPHOCYTES % (AUTO) 20 % (12-44); MEAN CORPUSCULAR HEMOGLOBIN 29 pg (25-34); MEAN CORPUSCULAR HGB CONC 33 g/dL (32-36); MEAN CORPUSCULAR VOLUME 89 fL (80-99); MEAN PLATELET VOLUME 10.2 fL (9.0-12.2); MONOCYTES # (AUTO) 0.6 X 10^3 (0.0-1.0); MONOCYTES % (AUTO) 7 % (0-12); NEUTROPHILS # (AUTO) 5.9 X 10^3 (1.8-7.8); NEUTROPHILS % (AUTO) 70 % (42-75); PLATELET COUNT 364 10^3/uL (130-400); WHITE BLOOD COUNT 8.4 10^3/uL (4.3-11.0)
[2020-11-20 14:49] LABS: ALBUMIN 3.7 GM/DL (3.2-4.5); CALCIUM 9.8 MG/DL (8.5-10.1); CREATININE SERUM 1.05 MG/DL (0.60-1.30); POTASSIUM 3.1 MMOL/L (3.6-5.0); TOTAL PROTEIN 6.6 GM/DL (6.4-8.2)
== END ==
LOC: ONC 14:20
PROVIDERS: ATTEND Internal Medicine Hematology & Oncology
DX: D47.2 Monoclonal gammopathy (principal); E55.9 Vitamin D deficiency, unspecified; E66.01 Morbid (severe) obesity due to excess calories; N18.30 Chronic kidney disease, stage 3 unspecified; E03.9 Hypothyroidism, unspecified; Z85.3 Personal history of malignant neoplasm of breast; Z90.13 Acquired absence of bilateral breasts and nipples; Z98.890 Other specified postprocedural states; Z92.3 Personal history of irradiation; Z92.21 Personal history of antineoplastic chemotherapy
CPT/HCPCS: 80053; 82232; 82784 ×3; 83883; 84165; 85025; G0463; 84155; 99213

== ENCOUNTER → 2021-01-10 | Outpatient (CLI) | payer BC ==
--- NOTE | 2021-01-10 18:06 | Diagnostic Imaging Report ---
INDICATION: Left shoulder pain. FINDINGS: Glenohumeral joint and acromioclavicular joint relationships appear appropriate. There are mild osteoarthritic changes of the AC joint. There is no finding of a proximal humeral fracture, evidence of clavicular fracture or cortical disruption of the scapula. The visualized left ribs appear intact. There are surgical clips in the left axilla. IMPRESSION: Left AC joint osteoarthritic changes. No finding of dislocation or acute fracture. No suspicious bone lesion evident. Dictated by: Dictated on workstation # [id number]
== END ==
LOC: RAD 16:49
PROVIDERS: ATTEND Family Medicine
DX: M19.012 Primary osteoarthritis, left shoulder (principal)
CPT/HCPCS: 73030

== ENCOUNTER → 2021-02-21 | Outpatient (CLI) | payer BC ==
--- NOTE | 2021-02-21 17:43 | Diagnostic Imaging Report ---
PROCEDURE: MRI left upper extremity without contrast. TECHNIQUE: Multiplanar, multisequence non contrast-enhanced MRI of the left upper extremity was accomplished. INDICATION: Left shoulder pain, injury in July. COMPARISON: Radiographs from 01/10/2021 FINDINGS: There is motion artifact on multiple sequences. Alignment appears normal. No acute fracture is seen. Subcortical cystlike change at the superior humeral head is likely degenerative. No joint effusion is seen. There are mild degenerative changes in the acromioclavicular joint. The supraspinatus tendon and the infraspinatus tendon demonstrates small low-grade partial-thickness tears at the articular surface of the insertions. The teres minor tendon appears intact. The subscapularis tendon is intact. No muscular atrophy is seen. The long head of the biceps tendon is normal in course and signal. The glenoid labrum is suboptimally evaluated in the absence of intra-articular contrast but no paralabral cyst is seen. The acromion has a slightly curved undersurface without hooking. The coracoclavicular and coracoacromial ligaments appear intact. Soft tissues about the left shoulder are otherwise unremarkable. IMPRESSION: 1. Small low-grade partial-thickness tears in the left rotator cuff with no high-grade partial-thickness or full-thickness tear seen. 2. Mild degenerative changes in the left shoulder. Dictated by: Dictated on workstation # [id number]
== END ==
LOC: RAD 15:25
PROVIDERS: ATTEND Nurse Practitioner Family
DX: S46.012A Strain of muscle(s) and tendon(s) of the rotator cuff of left shoulder, initial encounter (principal); M19.012 Primary osteoarthritis, left shoulder; X58.XXXA Exposure to other specified factors, initial encounter
CPT/HCPCS: 73221

== ENCOUNTER → 2021-03-27 | Outpatient (CLI) | payer BC ==
--- NOTE | 2021-03-27 13:51 | Diagnostic Imaging Report ---
PROCEDURE: CT chest, abdomen, and pelvis without contrast. TECHNIQUE: Multiple contiguous axial images were obtained through the chest, abdomen, and pelvis without the use of intravenous contrast. Auto Exposure Controls were utilized during the CT exam to meet ALARA standards for radiation dose reduction. INDICATION: Abdominal pain as well as back pain and loose stools. Patient has had nausea for one week. COMPARISON: Comparison is made with prior CT from 03/06/2015. CT CHEST: There are bilateral breast implants. There are postop changes of bilateral axillary lymph node dissection with surgical clips present in bilateral axillae. No definite adenopathy is seen. No mediastinal or hilar lymphadenopathy is detected. No pericardial or pleural fluid is identified. Right hemidiaphragmatic elevation is again noted. No pulmonary nodules, infiltrates, or masses are seen. There is some scarring or atelectasis in the right middle lobe. Bony structures are unremarkable. CT ABDOMEN AND PELVIS: No discrete liver mass is detected. Gallbladder is surgically absent. No biliary ductal dilatation is seen. Pancreas and spleen are unremarkable. No adrenal mass is detected. Kidneys are unremarkable. There is a tiny nonobstructing calculus in the mid left kidney. There is no hydronephrosis. Aorta is nonaneurysmal. No central retroperitoneal or mesenteric lymphadenopathy is seen. The small and large bowel loops are normal in caliber. There is no obstruction. The uterus is unremarkable. The bladder is decompressed. No pelvic lymphadenopathy is detected. The bony structures are unremarkable. IMPRESSION: 1. Continued chronic elevation of the right hemidiaphragm. No thoracic lymphadenopathy or evidence of pulmonary metastatic disease is identified. 2. Unremarkable noncontrast CT of the abdomen and pelvis apart from a tiny nonobstructing left renal calculus. No abdominal or pelvic lymphadenopathy or evidence of metastatic disease is detected. Dictated by: Dictated on workstation # [id number]
== END ==
LOC: RAD 13:15
PROVIDERS: ATTEND Nurse Practitioner Family
DX: J98.6 Disorders of diaphragm (principal); R74.8 Abnormal levels of other serum enzymes
CPT/HCPCS: 71250; 74176

== ENCOUNTER → 2021-06-11 | Outpatient (CLI) | payer BC | LOC: LABNPT 08:30 | PROVIDERS: ATTEND Family Medicine | DX: U07.1 COVID-19 (principal) | CPT/HCPCS: 87635 ==

== ENCOUNTER → 2021-08-30 | Outpatient (CLI) | payer BC ==
[2021-08-30 16:44] LABS: BASOPHILS # (AUTO) 0.1 10^3/uL (0.0-0.1); BASOPHILS % (AUTO) 1 % (0-10); EOSINOPHILS # (AUTO) 0.2 10^3/uL (0.0-0.3); EOSINOPHILS % (AUTO) 1 % (0-10); HEMATOCRIT 50 % (35-52); LYMPHOCYTES # (AUTO) 3.5 10^3/uL (1.0-4.0); LYMPHOCYTES % (AUTO) 23 % (12-44); MEAN CORPUSCULAR HEMOGLOBIN 30 pg (25-34); MEAN CORPUSCULAR HGB CONC 34 g/dL (32-36); MEAN CORPUSCULAR VOLUME 89 fL (80-99); MEAN PLATELET VOLUME 10.2 fL (9.0-12.2); MONOCYTES # (AUTO) 1.4 10^3/uL (0.0-1.0); MONOCYTES % (AUTO) 9 % (0-12); NEUTROPHILS # (AUTO) 9.7 10^3/uL (1.8-7.8); NEUTROPHILS % (AUTO) 65 % (42-75); PLATELET COUNT 378 10^3/uL (130-400)
[2021-08-30 16:53] LABS: ALBUMIN 4.2 GM/DL (3.2-4.5); POTASSIUM 2.8 MMOL/L (3.6-5.0)
[2021-08-30 16:54] LABS: CALCIUM 9.6 MG/DL (8.5-10.1)
[2021-08-30 16:55] LABS: TOTAL PROTEIN 7.2 GM/DL (6.4-8.2)
[2021-08-30 16:56] LABS: BILIRUBIN,URINE NEGATIVE (NEGATIVE); CLARITY,URINE CLEAR; COLOR,URINE YELLOW; GLUCOSE, URINE (UA) NEGATIVE (NEGATIVE); KETONES,URINE NEGATIVE (NEGATIVE); LEUKOCYTE ESTERASE ,URINE NEGATIVE (NEGATIVE); NITRITE,URINE NEGATIVE (NEGATIVE); PH,URINE 5.5 (5-9); PROTEIN,URINE NEGATIVE (NEGATIVE)
[2021-08-30 16:57] LABS: BILIRUBIN,TOTAL 1.2 MG/DL (0.1-1.0)
[2021-08-30 16:59] LABS: CREATININE SERUM 1.49 MG/DL (0.60-1.30)
[2021-08-30 17:12] LABS: BACTERIA,URINE FEW /HPF; SQUAMOUS EPITHELIAL CELL,UR 0-2 /HPF; WBC,URINE 0-2 /HPF
[2021-08-30 17:42] LABS: EOSINOPHILS % (MANUAL) 1 %; LYMPHOCYTES % (MANUAL) 26 %; MONOCYTES % (MANUAL) 8 %; NEUTROPHILS % (MANUAL) 65 %
[2021-08-30 17:43] LABS: RBC MORPH NORMAL
== END ==
LOC: LAB 16:13
PROVIDERS: ATTEND Family Medicine
DX: D72.829 Elevated white blood cell count, unspecified (principal); R11.0 Nausea
CPT/HCPCS: 36415; 80053; 81000; 82150; 83690; 85007; 85027; 87077; 87088; 87186

== ENCOUNTER → 2021-09-20 | Outpatient (CLI) | payer BC ==
--- NOTE | 2021-09-20 07:41 | Diagnostic Imaging Report ---
PROCEDURE: US Hepatic (Liver). TECHNIQUE: Multiple real-time grayscale images were obtained over the right upper quadrant in various projections. INDICATION: Elevated liver enzymes Exam is limited because of overlying bowel gas and patient body habitus. Liver parenchyma appears grossly normal. Portal vein is patent with hepatopetal flow. The gallbladder surgically absent. Common duct is not appreciably dilated. Pancreas, aorta and IVC are obscured. Right kidney measures 8.5 cm length. There is no ascites. IMPRESSION: Surgically absent gallbladder. Liver appears grossly normal. Dictated by: Dictated on workstation # [id number]
== END ==
LOC: RAD 07:15
PROVIDERS: ATTEND Nurse Practitioner Family
DX: R94.5 Abnormal results of liver function studies (principal); Z90.49 Acquired absence of other specified parts of digestive tract
CPT/HCPCS: 76705

== ENCOUNTER 2021-10-07 11:26 | Observation (INO) | payer BC ==
[~2021-10-07] VITALS: Ht 154.9 cm; Wt 96.0 kg
[2021-10-07] MEDS ORDERED: PROMETHAZINE/ CODEINE SYRUP 5 ML UDC PO ONE (12:00)
[2021-10-07] MEDS ORDERED: AZITHROMYCIN INJECTION 500 MG in NS (IVPB) 250 ML IV ONE (12:00)
[2021-10-07 12:30] VITALS: BP 113/74
[2021-10-07 13:00] LABS: HEMATOCRIT 41 % (35-52); HEMOGLOBIN 13.2 g/dL (11.5-16.0); MEAN CORPUSCULAR HEMOGLOBIN 30 pg (25-34); MEAN CORPUSCULAR HGB CONC 32 g/dL (32-36); MEAN CORPUSCULAR VOLUME 93 fL (80-99); MEAN PLATELET VOLUME 10.1 fL (9.0-12.2); PLATELET COUNT 336 10^3/uL (130-400); WHITE BLOOD COUNT 6.3 10^3/uL (4.3-11.0)
[2021-10-07] MEDS ORDERED: UMECLIDINIUM BROMIDE (INCRUSE ELLIPTA) 7'S IH SCH (13:00)
[2021-10-07] MEDS ORDERED: RT-ALBUTEROL SULF 2.5 MG/3 ML PRE-MIX VIAL INH SCH (13:00)
[2021-10-07 13:14] LABS: ALBUMIN 3.5 GM/DL (3.2-4.5); POTASSIUM 4.1 MMOL/L (3.6-5.0)
[2021-10-07 13:15] LABS: CALCIUM 9.3 MG/DL (8.5-10.1)
--- NOTE | 2021-10-07 13:15 | History & Physical ---
History of Present Illness History of Present Illness Reason for visit/HPI PT IS A 66 Y/O FEMALE WHO IS KNOWN TO ME FROM CLINIC. SHE PRESENTED TO THE OFFICE FEELING "MISERABLE" AND HAVING PERSISTENT COUGH, SHORTNESS OF BREATH AND LOW BLOOD PRESSURE. SHE REPORTS THAT SHE WAS SENT HOME FROM WORK DUE TO HER CONSTANT COUGHING AND FEELING LIGHT-HEADED. SHE WAS THEREFORE ADMITTED TO THE HOSPITAL FOR HYDRATION, AND FURTHER WORK-UP. Date of Admission October 07, 2021 at 12:08 Date Seen by a Provider: October 07, 2021 Time Seen by a Provider: 11:00 I consulted on this patient on 10/07/21 13:15 Attending Physician Ana Wahl MD Admitting Physician Ana Wahl MD Consult Allergies and Home Medications Allergies Coded Allergies: adhesive tape (Verified Allergy, Unknown, Hives, 11/09/20) latex (Verified Allergy, Unknown, HIVES, 11/09/20) Patient Home Medication List Home Medication List Reviewed: Yes Bupropion HCl (Wellbutrin Xl) 150 Mg Tab.er.24h, 150 MG PO DAILY, (Reported) Entered as Reported by: ELIESER HERRERA on 10/07/211424 Last Action: Converted Hydrocodone/Acetaminophen (Hydrocodone-Acetamin 10-325 mg) 10 Mg-325 Mg Tablet, 1 EACH PO Q6H PRN for PAIN-MODERATE (5-7), (Reported) Entered as Reported by: ELIESER HERRERA on 10/07/211424 Last Action: Held Levothyroxine Sodium (Levothyroxine Sodium) 75 Mcg Tablet, 75 MCG PO DAILY, (Reported) Entered as Reported by: ELIESER HERRERA on 10/07/211424 Last Action: Continued Metoprolol Succinate (Metoprolol Succinate) 25 Mg Tab.er.24h, 25 MG PO DAILY, (Reported) Entered as Reported by: ELIESER HERRERA on 10/07/211424 Last Action: Held Discontinued Medications Bupropion HCl (Wellbutrin Xl) 150 Mg Tab.er.24h, 150 MG PO DAILY, (Reported) Discontinued Reason: No Longer Taking Entered as Reported by: SANTA GUTIERREZ on 11/02/20 8028 Last Action: Discontinued Hydrocodone Bit/Acetaminophen (HYDROcodone/APAP 10/325 TABLET) 1 Each Tablet, 1 EACH PO Q6H PRN for PAIN-MODERATE, (Reported) Discontinued Reason: No Longer Taking Entered as Reported by: SANTA GUTIERREZ on 04/09/17 1212 Last Action: Discontinued Levothyroxine Sodium (Levothyroxine Sodium) 112 Mcg Tablet, 112 MCG PO DAILY, (Reported) Discontinued Reason: No Longer Taking Entered as Reported by: SANTA GUTIERREZ on 11/02/20 0935 Last Action: Discontinued Triamterene/Hydrochlorothiazid (Triamterene-Hctz 37.5-25 mg Cp) 1 Each Capsule, 1 EACH PO DAILY, (Reported) Discontinued Reason: No Longer Taking Entered as Reported by: SANTA GUTIERREZ on 04/09/17 1212 Last Action: Discontinued Past [id number]-[id number] Hx Patient Social History Marrital Status: Living Status: LIVES AT HOME WITH SPOUSE Employed/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 [employer]) Tobacco Use?: No Smoking Status: Never a Smoker Use of E-Cig and/or Vaping dev: No Substance use?: No Alcohol Use?: No Pt feels they are or have been: No Immunizations Up To Date Date of Influenza Vaccine: Mar 14, 2013 PED Vaccines UTD: No Seasonal Allergies Seasonal Allergies: Yes Current Status status: No status: No Advance Directives: No Communicates: Verbally Primary Language: Hebrew Preferred Spoken Language: Hebrew Is interpretation needed?: No Past Medical History Surgeries: Abdominal (SLEEVE GASTRECTOMY), Breast (MASTECTOMY WITH RECONSTRUCTION), Gallbladder Sleep Apnea Currently Using CPAP: No Currently Using BIPAP: No Hypertension Neuropathy Sexually Transmitted Disease: No HIV/AIDS: No Kidney Stones Arthritis, Fractures Hypothyroidsim Are Your Blood Sugars Over 250: No Loss of Vision: Denies Breast What Type of Treatment Did You: Chemotherapy, Radiation, Surgical Intervention Depression Blood Disorders: No Adverse Reaction/Blood Tranf: No Family Medical History Heart Disease, Hypertension Review of Systems Constitutional: No chills, No diaphoresis, No fever; malaise, weakness EENTM: hoarseness (INTERMITTENT); No throat pain Cardiovascular: No chest pain, No palpitations, No syncope (BUT FEELS FAINT) Gastrointestinal: No abdominal pain, No constipation, No diarrhea; loss of appetite; No nausea, No vomiting Genitourinary: no symptoms reported Musculoskeletal: muscle weakness (GENERALIZED) Skin: no symptoms reported Psychiatric/Neurological: Denies Anxiety; Depressed; Denies Headache All Other Systems Reviewed Negative Unless Noted: Yes Physical Exam Vital Signs Vital Signs - First Documented 10/07/21 10/07/21 10/07/21 12:20 12:30 20:55 Temp 37.0 Pulse 83 Resp 20 B/P (MAP) 113/74 (87) Pulse Ox 99 O2 Delivery Room Air O2 Flow Rate 0.00 Capillary Refill : Height, Weight, BMI Height: 5'1.00" Weight: 193lbs. 0.0oz. 87.385635ms; 36.5 BMI Method: General Appearance: WD/WN, Mild Distress HEENT: PERRL/EOMI, Pharynx Normal Neck: Full Range of Motion, Non Tender, Supple Respiratory: Chest Non Tender, No Accessory Muscle Use, No Respiratory Distress, Decreased Breath Sounds, Wheezing Cardiovascular: Regular Rate, Rhythm, No Murmur, Normal Peripheral Pulses Gastrointestinal: Normal Bowel Sounds, No Organomegaly, No Pulsatile Mass, Non Tender, Soft Rectal: Deferred Back: Normal Inspection, No CVA Tenderness, No Vertebral Tenderness Extremity: Normal Capillary Refill, Normal Inspection, Normal Range of Motion, Non Tender, No Calf Tenderness Neurologic/Psychiatric: Alert, Oriented x3, No Motor/Sensory Deficits, Normal Mood/Affect Skin: Warm/Dry, Pallor Lymphatic: No Adenopathy Assessment/Plan Assessment and Plan DEHYDRATION COUGH HYPOTENSION WEAKNESS POSSIBLE ASPIRATION VS ALLERGIC ASTHMA DEHYDRATION - IV FLUIDS, BOLUS OF 1 LITER THEN RUN AT 150ML/HR - REPEAT LABS COUGH - POSSIBLE ASPIRATION - COVER WITH IV ANTIBIOTICS, CHECK CT OF CHEST - MAT PROTOCOL WITH BREATHING TREATMENTS - PROMETHAZINE COUGH SYRUP. HYPOTENSION WITH WEAKNESS - IV FLUID BOLUS, MONITOR BP, IF NEEDED WILL START THERAPY - WILL ASK STAFF TO AMBULATE HER IN THE HALLS. DVT PROPHYLAXIS WITH SCD'S AND LOVENOX GI PROPHYLAXIS WITH PPI Admission Diagnosis DEHYDRATION COUGH HYPOTENSION WEAKNESS POSSIBLE ASPIRATION VS ALLERGIC ASTHMA Admission Status: Inpatient Order (span 2 midnights) Reason for Inpatient Admission: INPATIENT ADMISSION FOR DEHYDRATION, COUGH, CONCERN FOR ASPIRATION DUE TO PERSISTENT COUGH, WILL REQUIRE AT LEAST 2-3 MIDNIGHTS FOR TREATMENT ANA WAHL MD October 07, 2021 13:15
[2021-10-07 13:17] LABS: TOTAL PROTEIN 6.2 GM/DL (6.4-8.2)
[2021-10-07 13:18] LABS: BILIRUBIN,TOTAL 0.7 MG/DL (0.1-1.0)
[2021-10-07 13:20] LABS: CREATININE SERUM 1.15 MG/DL (0.60-1.30)
[2021-10-07 13:23] LABS: MAGNESIUM 1.9 MG/DL (1.6-2.4)
[2021-10-07] MEDS: NS IV 1000 ML 1,000 ML IV SCH ×2 (13:28→21:41)
[2021-10-07] MEDS: ENOXAPARIN 40 MG/0.4 ML (LOVENOX) SYR SC SCH (13:28)
[2021-10-07] MEDS ORDERED: IOHEXOL 350 MG/ML 100 ML (OMNIPAQUE 350) VIAL IV ONE (13:30)
[2021-10-07] MEDS ORDERED: NS 100 ML (IVPB) BAG IV ONE (13:30)
[2021-10-07] MEDS ORDERED: HYDR-3820 PO (14:25)
[2021-10-07] MEDS ORDERED: LEVO75TA6 PO (14:25)
[2021-10-07] MEDS ORDERED: BUPR-42 PO (14:25)
[2021-10-07] MEDS ORDERED: MTP25TSR PO (14:25)
[2021-10-07 16:00] VITALS: BP 103/67
--- NOTE | 2021-10-07 16:00 | Diagnostic Imaging Report ---
PROCEDURE: CT chest with contrast, CT abdomen with and without contrast. TECHNIQUE: Precontrast acquisitions were acquired through the abdomen. Multiple contiguous axial images were obtained through the chest and abdomen after administration of intravenous contrast. Auto Exposure Controls were utilized during the CT exam to meet ALARA standards for radiation dose reduction. INDICATION: Elevated liver function studies. History of breast cancer. Cough. COMPARISON: 03/27/2021. FINDINGS: CHEST: Bilateral breast implants and axillary node dissections have been performed. No suspicious chest wall or axillary mass or fluid collection. There is no hilar or mediastinal lymphadenopathy. There is an elevated right diaphragm with some subjacent chronic atelectasis or scarring in the right middle lobe at the base anteriorly. No acute infiltrate. No suspicious lung mass. No effusion or pneumothorax. No suspect chest wall lesion. There has been no change in the appearance of the chest. ABDOMEN: Post surgical changes of presumed sleeve gastrectomy have been performed without apparent complication. There is no abdominal bowel obstruction. The kidneys are unobstructed and nonacute. The adrenals are negative. The spleen, liver, and bile ducts are unremarkable. The gallbladder is surgically absent. There is no mesenteric or retroperitoneal adenopathy. The pancreas is nonacute. The aorta is nonaneurysmal. There is no ascites. There is no abdominal small or large bowel obstruction. No focal inflammatory process. IMPRESSION: No findings of metastatic disease to the chest or abdomen. No change from priors. Dictated by: Dictated on workstation # [id number]
[2021-10-07 20:00] VITALS: BP 117/76
[2021-10-07] MEDS: RT-ALBUTEROL/IPRATROPIUM 3 ML (DUONEB) VIAL INH SCH (20:54)
[2021-10-07] MEDS ORDERED: ALBUTEROL/IPRATROP (COMBIVENT RESPIMAT) 4 GM INHALER IH SCH (21:00)
[2021-10-07] MEDS: PROMETHAZINE/ CODEINE SYRUP 5 ML UDC PO PRN (21:54)
[2021-10-08] VITALS (7 sets, daily range): BP systolic 109–130; BP diastolic 65–87
[2021-10-08] MEDS: NS IV 1000 ML 1,000 ML IV SCH ×4 (04:18→18:18)
[2021-10-08] MEDS: RT-ALBUTEROL/IPRATROPIUM 3 ML (DUONEB) VIAL INH SCH ×3 (07:24→21:25)
[2021-10-08] MEDS ORDERED: AZITHROMYCIN INJECTION 250 MG in NS (IVPB) 250 ML IV SCH (09:00)
--- NOTE | 2021-10-08 09:16 | Progress Note ---
Subjective Subjective Date Seen by Provider: October 08, 2021 Time Seen by Provider: 07:45 Pt is breathing better, she denies fever and N/V. Still coughing up sputum after breathing treatments. Review of Systems General: No Chills, No Night Sweats; Malaise HEENT: No Head Aches, No Dysphasia Pulmonary: Dyspnea, Cough Cardiovascular: No: Chest Pain, Palpitations Gastrointestinal: No: Nausea, Vomiting, Abdominal Pain Genitourinary: No Dysuria, No Frequency Neurological: Weakness (generalized muscle weakness ); No: Seizures All Other Systems Reviewed All Other Systems Reviewed: Yes Objective Exam Vital Signs Vital Signs Date Time Temp Pulse Resp B/P (MAP) Pulse Ox O2 Delivery O2 Flow Rate FiO2 10/08/21 07:55 36.6 79 18 127/83 (98) 96 Room Air 10/08/21 07:25 97 Room Air 0.00 10/08/21 04:45 36.8 77 16 126/77 (93) 98 Room Air 10/08/21 00:55 36.7 77 18 109/65 (80) 96 Room Air 10/07/21 20:55 97 Room Air 0.00 10/07/21 20:30 Room Air 10/07/21 20:00 36.5 75 18 117/76 (90) 100 Room Air 10/07/21 16:00 36.9 80 18 103/67 (79) 100 Room Air 10/07/21 12:30 37.0 83 20 113/74 (87) 99 Room Air 10/07/21 12:20 Room Air I & O 10/08/21 07:00 Intake Total 3655 ml Output Total 1225 ml Balance 2430 ml General Appearance: No Apparent Distress, WD/WN, Other HEENT: PERRL/EOMI, Pharynx Normal Neck: Full Range of Motion, Non Tender, Supple Respiratory: Chest Non Tender, No Accessory Muscle Use, No Respiratory Distress, Decreased Breath Sounds, Wheezing Cardiovascular: Regular Rate, Rhythm, No Murmur, Normal Peripheral Pulses Gastrointestinal: Normal Bowel Sounds, No Organomegaly, No Pulsatile Mass, Non Tender, Soft Rectal: Deferred Back: Normal Inspection, No CVA Tenderness, No Vertebral Tenderness Extremity: Normal Capillary Refill, Normal Inspection, Normal Range of Motion, Non Tender, No Calf Tenderness Neurologic/Psychiatric: Alert, Oriented x3, No Motor/Sensory Deficits, Normal Mood/Affect Skin: Warm/Dry, Pallor Lymphatic: No Adenopathy Results Lab Laboratory Tests 10/07/21 12:51: White Blood Count 6.3, Red Blood Count 4.41, Hemoglobin 13.2, Hematocrit 41, Mean Corpuscular Volume 93, Mean Corpuscular Hemoglobin 30, Mean Corpuscular Hemoglobin Concent 32, Red Cell Distribution Width 14.5, Platelet Count 336, Mean Platelet Volume 10.1, Sodium Level 139, Potassium Level 4.1, Chloride Level 105, Carbon Dioxide Level 23, Anion Gap 11, Blood Urea Nitrogen 13, Creatinine 1.15, Estimat Glomerular Filtration Rate 53, BUN/Creatinine Ratio 11, Glucose Level 103, Calcium Level 9.3, Corrected Calcium 9.7, Magnesium Level 1.9, Total Bilirubin 0.7, Aspartate Amino Transf (AST/SGOT) 30, Alanine Aminotransferase (ALT/SGPT) 28, Alkaline Phosphatase 78, Total Protein 6.2L, Albumin 3.5 Assessment/Plan Assessment/Plan Admission Dx DEHYDRATION COUGH HYPOTENSION WEAKNESS POSSIBLE ASPIRATION VS ALLERGIC ASTHMA Depression Hypothyroidism PMH of Breast Cancer Assessment and Plan DEHYDRATION COUGH HYPOTENSION WEAKNESS POSSIBLE ASPIRATION VS ALLERGIC ASTHMA Depression Hypothyroidism PMH of Breast Cancer DEHYDRATION - IV FLUIDS, BOLUS OF 1 LITER THEN RUN AT 150ML/HR - REPEAT LABS COUGH - POSSIBLE ASPIRATION - COVER WITH IV ANTIBIOTICS, CT scan of chest was normal - MAT PROTOCOL WITH BREATHING TREATMENTS - PROMETHAZINE COUGH SYRUP. HYPOTENSION WITH WEAKNESS - IV FLUID BOLUS, Adjust home medication and hold blood pressure medication, MONITOR BP, IF NEEDED WILL START THERAPY - WILL ASK STAFF TO AMBULATE HER IN THE HALLS. Her SOB and weakness align with her recent exposure to a cat, initiated Albuterol/Ipratropium, and infused IV steroids with possible discharge tomorrow to home. DVT PROPHYLAXIS WITH SCD'S AND LOVENOX GI PROPHYLAXIS WITH PPI Supervisory-Addendum Brief Verification & Attestation Participated in pt care: history, MDM, physical Personally performed: exam, history, MDM, supervision of care Care discussed with: Medical Student Procedures: n/a Results interpretation: Verified all documentation DEHYDRATION COUGH HYPOTENSION WEAKNESS POSSIBLE ASPIRATION VS ALLERGIC ASTHMA DEHYDRATION - IV FLUIDS, BOLUS OF 1 LITER THEN RUN AT 150ML/HR - REPEAT LABS SHOW IMPROVEMENT COUGH - POSSIBLE ASPIRATION - COVER WITH IV ANTIBIOTICS - MAT PROTOCOL WITH BREATHING TREATMENTS - PROMETHAZINE COUGH SYRUP. HYPOTENSION WITH WEAKNESS IMPROVED MONITOR BP AND HEART RATE DVT PROPHYLAXIS WITH SCD'S AND LOVENOX GI PROPHYLAXIS WITH PPI UMM SUAREZ October 08, 2021 09:16 ANA GARNICA MD October 09, 2021 09:43
[2021-10-08] MEDS: cefTRIAXone 1 GM PRE-MIX 50 ML IV SCH (09:39)
[2021-10-08] MEDS: LEVOTHYROXINE 75 MCG (LEVOTHROID) TABLET PO SCH (09:42)
[2021-10-08] MEDS: LORATADINE (CLARITIN) 10 MG TAB PO SCH (09:42)
[2021-10-08] MEDS: buPROPion SR 150 MG (WELLBUTRIN SR) TAB PO SCH (09:42)
[2021-10-08] MEDS: PANTOPRAZOLE 40 MG (PROTONIX) TAB PO SCH (09:42)
[2021-10-08] MEDS: methylPREDNISolone 125 MG (Solu-MEDROL) VIAL IVP SCH ×4 (09:47→23:29)
[2021-10-08] MEDS: UMECLIDINIUM BROMIDE (INCRUSE ELLIPTA) 7'S IH SCH (09:57)
[2021-10-08] MEDS: ENOXAPARIN 40 MG/0.4 ML (LOVENOX) SYR SC SCH (14:35)
[2021-10-08] MEDS ORDERED: ACETAMINOPHEN 500 MG TAB (TYLENOL) ONE (21:04)
[2021-10-08] MEDS: ACETAMINOPHEN 500 MG TAB (TYLENOL) PO PRN (21:05)
[2021-10-08] MEDS: PROMETHAZINE/ CODEINE SYRUP 5 ML UDC PO PRN (23:29)
[2021-10-09] MEDS: NS IV 1000 ML 1,000 ML IV SCH ×2 (01:28→11:18)
[2021-10-09 03:39] VITALS: BP 114/71
[2021-10-09 05:58] LABS: HEMATOCRIT 39 % (35-52); HEMOGLOBIN 12.7 g/dL (11.5-16.0); MEAN CORPUSCULAR HEMOGLOBIN 30 pg (25-34); MEAN CORPUSCULAR HGB CONC 33 g/dL (32-36); MEAN CORPUSCULAR VOLUME 90 fL (80-99); PLATELET COUNT 325 10^3/uL (130-400); WHITE BLOOD COUNT 13.7 10^3/uL (4.3-11.0)
[2021-10-09 06:16] LABS: ALBUMIN 3.4 GM/DL (3.2-4.5)
[2021-10-09] MEDS: methylPREDNISolone 125 MG (Solu-MEDROL) VIAL IVP SCH (06:16)
[2021-10-09 06:17] LABS: POTASSIUM 3.8 MMOL/L (3.6-5.0)
[2021-10-09 06:18] LABS: CALCIUM 8.8 MG/DL (8.5-10.1)
[2021-10-09 06:19] LABS: TOTAL PROTEIN 5.9 GM/DL (6.4-8.2)
[2021-10-09 06:21] LABS: BILIRUBIN,TOTAL 0.6 MG/DL (0.1-1.0)
[2021-10-09 06:23] LABS: CREATININE SERUM 0.72 MG/DL (0.60-1.30)
[2021-10-09 07:22] VITALS: BP 129/81
--- NOTE | 2021-10-09 07:41 | Progress Note ---
Subjective Subjective Date Seen by Provider: October 09, 2021 Time Seen by Provider: 07:30 Pt is breathing better, she denies fever and N/V. Still coughing up sputum, but reports a BURROWS with a rating of 8/10. Overall, she states that she is better but not back to baseline. Review of Systems General: No Chills, No Night Sweats; Malaise HEENT: No Head Aches, No Dysphasia Pulmonary: Dyspnea, Cough Cardiovascular: No: Chest Pain, Palpitations Gastrointestinal: No: Nausea, Vomiting, Abdominal Pain Genitourinary: No Dysuria, No Frequency Neurological: Weakness (generalized muscle weakness ); No: Seizures All Other Systems Reviewed All Other Systems Reviewed: Yes Objective Exam Vital Signs Vital Signs Date Time Temp Pulse Resp B/P (MAP) Pulse Ox O2 Delivery O2 Flow Rate FiO2 10/09/21 07:22 37.0 107 20 129/81 (97) 97 Room Air 10/09/21 03:39 36.0 105 20 114/71 (85) 94 Room Air 10/08/21 23:31 36.7 110 20 126/72 (90) 95 Room Air 10/08/21 21:25 95 Room Air 10/08/21 20:00 36.1 114 20 130/73 (92) 96 Room Air 10/08/21 19:59 Room Air 10/08/21 16:00 36.6 114 20 122/75 (91) 96 Room Air 10/08/21 15:01 96 Room Air 0.00 10/08/21 11:42 37.0 91 18 129/87 (101) 99 Room Air 10/08/21 08:00 Room Air 10/08/21 07:55 36.6 79 18 127/83 (98) 96 Room Air I & O 10/09/21 07:00 Intake Total 2050 ml Output Total 1900 ml Balance 150 ml General Appearance: No Apparent Distress, WD/WN, Other HEENT: PERRL/EOMI, Pharynx Normal Neck: Full Range of Motion, Non Tender, Supple Respiratory: Chest Non Tender, No Accessory Muscle Use, No Respiratory Distress , Decreased Breath Sounds, Wheezing Cardiovascular: Regular Rate, Rhythm, No Murmur, Normal Peripheral Pulses Gastrointestinal: Normal Bowel Sounds, No Organomegaly, No Pulsatile Mass, Non Tender, Soft Rectal: Deferred Back: Normal Inspection, No CVA Tenderness, No Vertebral Tenderness Extremity: Normal Capillary Refill, Normal Inspection, Normal Range of Motion, Non Tender, No Calf Tenderness Neurologic/Psychiatric: Alert, Oriented x3, No Motor/Sensory Deficits, Normal Mood/Affect Skin: Warm/Dry, Pallor Lymphatic: No Adenopathy Results Lab Laboratory Tests 10/09/21 05:45: White Blood Count 13.7H, Red Blood Count 4.27, Hemoglobin 12.7, Hematocrit 39, Mean Corpuscular Volume 90, Mean Corpuscular Hemoglobin 30, Mean Corpuscular Hemoglobin Concent 33, Red Cell Distribution Width 14.2, Platelet Count 325, Me an Platelet Volume 10.0, Sodium Level 143, Potassium Level 3.8, Chloride Level 113H, Carbon Dioxide Level 18L, Anion Gap 12, Blood Urea Nitrogen 10, Creatinine 0.72, Estimat Glomerular Filtration Rate 93, BUN/Creatinine Ratio 14, Glucose Level 204H, Calcium Level 8.8, Corrected Calcium 9.3, Total Bilirubin 0.6, Aspartate Amino Transf (AST/SGOT) 12, Alanine Aminotransferase (ALT/SGPT) 19, Alkaline Phosphatase 72, Total Protein 5.9L, Albumin 3.4 Assessment/Plan Assessment/Plan Admission Dx DEHYDRATION COUGH HYPOTENSION WEAKNESS POSSIBLE ASPIRATION VS ALLERGIC ASTHMA Depression Hypothyroidism [facility] Breast Cancer Assessment and Plan DEHYDRATION COUGH HYPOTENSION WEAKNESS POSSIBLE ASPIRATION VS ALLERGIC ASTHMA Depression Hypothyroidism Headache [facility] Breast Cancer DEHYDRATION - IV FLUIDS, BOLUS OF 1 LITER THEN RUN AT 150ML/HR - REPEAT LABS COUGH - POSSIBLE ASPIRATION - COVER WITH IV ANTIBIOTICS, CT scan of chest was normal - MAT PROTOCOL WITH BREATHING TREATMENTS - PROMETHAZINE COUGH SYRUP. HYPOTENSION WITH WEAKNESS - IV FLUID BOLUS, Adjust home medication and hold blood pressure medication, MONITOR BP, IF NEEDED WILL START THERAPY - WILL ASK STAFF TO AMBULATE HER IN THE HALLS. Her SOB and weakness align with her recent exposure to a cat, initiated Albuterol/Ipratropium, and infused IV steroids yesterday. Will discharge today. Leukocytosis -IV antibiotics and repeat CBC Headache -Tylenol as needed DVT PROPHYLAXIS WITH SCD'S AND LOVENOX GI PROPHYLAXIS WITH PPI Admission Dx DEHYDRATION COUGH HYPOTENSION WEAKNESS POSSIBLE ASPIRATION VS ALLERGIC ASTHMA Depression Hypothyroidism [facility] Breast Cancer Clinical Quality Measures Admission Status Admission Dx DEHYDRATION COUGH HYPOTENSION WEAKNESS POSSIBLE ASPIRATION VS ALLERGIC ASTHMA Depression Hypothyroidism [facility] Breast Cancer Supervisory-Addendum Brief Verification & Attestation Participated in pt care: history, MDM, physical Personally performed: exam, history, MDM, supervision of care Care discussed with: Medical Student Procedures: n/a Results interpretation: Verified all documentation SEE MY DC SUMMARY FOR DETAILS UMM SUAREZ October 09, 2021 07:41 ANA GARNICA MD October 09, 2021 09:44
[2021-10-09] MEDS: cefTRIAXone 1 GM PRE-MIX 50 ML IV SCH (08:43)
[2021-10-09] MEDS: ACETAMINOPHEN 500 MG TAB (TYLENOL) PO PRN (08:44)
[2021-10-09] MEDS: buPROPion SR 150 MG (WELLBUTRIN SR) TAB PO SCH (08:44)
[2021-10-09] MEDS: LEVOTHYROXINE 75 MCG (LEVOTHROID) TABLET PO SCH (08:44)
[2021-10-09] MEDS: LORATADINE (CLARITIN) 10 MG TAB PO SCH (08:44)
[2021-10-09] MEDS: PANTOPRAZOLE 40 MG (PROTONIX) TAB PO SCH (08:45)
[2021-10-09] MEDS: UMECLIDINIUM BROMIDE (INCRUSE ELLIPTA) 7'S IH SCH (08:49)
[2021-10-09] MEDS: RT-ALBUTEROL/IPRATROPIUM 3 ML (DUONEB) VIAL INH SCH (08:49)
[2021-10-09] MEDS ORDERED: AZITHROMYCIN 250 MG TAB (ZITHROMAX) PO SCH (09:00)
[2021-10-09] MEDS ORDERED: meTOprolol TARTRATE 25 MG (LOPRESSOR) TABLET PO SCH (09:00)
[2021-10-09] MEDS ORDERED: LIDOCAINE 1% INJ 20 ML VIAL INJ ONE (09:15)
[2021-10-09] MEDS ORDERED: cefTRIAXone 1,000 MG VIAL IM ONE (09:15)
--- NOTE | 2021-10-09 09:44 | Discharge Summary ---
Diagnosis/Chief Complaint Date of Admission October 07, 2021 at 12:08 Date of Discharge Reason Hospital Visit PT IS A 66 Y/O FEMALE WHO IS KNOWN TO ME FROM CLINIC. SHE PRESENTED TO THE OFFICE FEELING "MISERABLE" AND HAVING PERSISTENT COUGH, SHORTNESS OF BREATH AND LOW BLOOD PRESSURE. SHE REPORTS THAT SHE WAS SENT HOME FROM WORK DUE TO HER CONSTANT COUGHING AND FEELING LIGHT-HEADED. SHE WAS THEREFORE ADMITTED TO THE HOSPITAL FOR HYDRATION, AND FURTHER WORK-UP. Discharge Summary Discharge Physical Examination Allergies: Coded Allergies: adhesive tape (Verified Allergy, Unknown, Hives, 11/09/20) latex (Verified Allergy, Unknown, HIVES, 11/09/20) Vitals & I&Os Vital Signs Date Time Temp Pulse Resp B/P (MAP) Pulse Ox O2 Delivery O2 Flow Rate FiO2 10/09/21 07:22 37.0 107 20 129/81 (97) 97 Room Air 10/08/21 15:01 0.00 Hospital Course DEHYDRATION COUGH HYPOTENSION WEAKNESS POSSIBLE ASPIRATION VS ALLERGIC ASTHMA DEHYDRATION - IV FLUIDS, BOLUS OF 1 LITER THEN RUN AT 150ML/HR - REPEAT LABS SHOW IMPROVEMENT COUGH - POSSIBLE ASPIRATION - COVER WITH IV ANTIBIOTICS - MAT PROTOCOL WITH BREATHING TREATMENTS - PROMETHAZINE COUGH SYRUP. HYPOTENSION WITH WEAKNESS IMPROVED MONITOR BP AND HEART RATE DVT PROPHYLAXIS WITH SCD'S AND LOVENOX GI PROPHYLAXIS WITH PPI Pending Labs Laboratory Tests 10/09/21 05:45: White Blood Count 13.7, Red Blood Count 4.27, Hemoglobin 12.7, Hematocrit 39, Mean Corpuscular Volume 90, Mean Corpuscular Hemoglobin 30, Mean Corpuscular Hemoglobin Concent 33, Red Cell Distribution Width 14.2, Platelet Count 325, Masha n Platelet Volume 10.0, Sodium Level 143, Potassium Level 3.8, Chloride Level 113, Carbon Dioxide Level 18, Anion Gap 12, Blood Urea Nitrogen 10, Creatinine 0.72, Estimat Glomerular Filtration Rate 93, BUN/Creatinine Ratio 14, Glucose Level 204, Calcium Level 8.8, Corrected Calcium 9.3, Total Bilirubin 0.6, Aspartate Amino Transf (AST/SGOT) 12, Alanine Aminotransferase (ALT/SGPT) 19, Alkaline Phosphatase 72, Total Protein 5.9, Albumin 3.4 Discharge Instructions to patient/family Please see electronic discharge instructions given to patient. Discharge Medications Reviewed and agree with Discharge Medication list on patient's Discharge Instruction sheet ANA GARNICA MD October 09, 2021 09:44
[2021-10-09] MEDS ORDERED: LORA10TA7 PO (09:49)
[2021-10-09] MEDS ORDERED: PANT40TA52 PO (09:49)
[2021-10-09] MEDS ORDERED: METO-333 PO (09:49)
[2021-10-09] MEDS ORDERED: IPRA3AMP31 INH (09:49)
[2021-10-09] MEDS ORDERED: Promethazine/Codeine PO (09:49)
[2021-10-09] MEDS ORDERED: AZIT250T12 PO (09:49)
[2021-10-09] MEDS ORDERED: PRD20T PO (09:49)
[2021-10-09] MEDS ORDERED: CEFD300C3 PO (09:49)
--- NOTE | 2021-10-09 09:51 | Discharge Inst-Simple/Standard ---
Discharge Inst-Standard Discharge Medications New, Converted or Re-Newed RX: Transmitted to Pharmacy Patient Instructions/Follow Up Plan of Care/Instructions/FU: 1 [facility] Activity as Tolerated: Yes Discharge Diet: Regular Diet Health Concerns: COUGH, CONGESTION, WEAKNESS Return to The Hospital For: ANY CONCERN FOR WORSENING SYMPTOMS ANA GARNICA MD October 09, 2021 09:51
[2021-10-09 11:18] VITALS: BP 125/61
[2021-10-09] MEDS: ENOXAPARIN 40 MG/0.4 ML (LOVENOX) SYR SC SCH (12:09)
[2021-10-09 12:30] VITALS: BP 125/61
== END 2021-10-09 12:30 | disposition home or self-care (01) ==
LOC: INTOOBSV 12:08 → 4TH 12:08
PROVIDERS: ADMIT Family Medicine; ATTEND Family Medicine
DX: E86.0 Dehydration (principal); I95.9 Hypotension, unspecified; M62.81 Muscle weakness (generalized); F32.A Depression, unspecified; E03.9 Hypothyroidism, unspecified; D72.829 Elevated white blood cell count, unspecified; R51.9 Headache, unspecified; Z85.3 Personal history of malignant neoplasm of breast; Z91.040 Latex allergy status; Z91.048 Other nonmedicinal substance allergy status
CPT/HCPCS: 36415; 71260; 74170; 80053; 83735; 85027; 86003; 94640; 94664; 94760

== ENCOUNTER → 2021-11-07 | Outpatient (CLI) | payer BC ==
[~2021-11-07] MED LIST changes: +AZIT250T12 PO; +CEFD300C3 PO; +HYDR-3820 PO; +IPRA3AMP31 INH; +LEVO75TA6 PO; +LORA10TA7 PO; +METO-333 PO; +MTP25TSR PO; +PANT40TA52 PO; +PRD20T PO; +Promethazine/Codeine PO; +RT-ALBUTEROL SULF 2.5 MG/3 ML PRE-MIX VIAL INH ONE
== END ==
LOC: RT 13:04
PROVIDERS: ATTEND Nurse Practitioner Family
DX: J98.01 Acute bronchospasm (principal)
CPT/HCPCS: 94060; 94726; 94729